=== PATIENT | female | born 1955 | race African-American/Black ===

== ENCOUNTER 2020-05-16 13:59 | Emergency (ER) | payer MEDICAID ==
[~2020-05-16] VITALS: Ht 170.2 cm; Wt 97.0 kg
[2020-05-16] MEDS ORDERED: IBUPROFEN 600MG TABLET PO ONE (15:00)
[2020-05-16 15:36] VITALS: BP 129/81
[2020-05-16] MEDS ORDERED: IBUP-2028 MT (15:42)
== END 2020-05-16 16:17 | disposition home or self-care (01) ==
LOC: ER 13:59
DX: M77.32 Calcaneal spur, left foot (principal)
CPT/HCPCS: 73630; 99283; Z7610

== ENCOUNTER 2020-05-23 08:13 | Emergency (ER) | payer MEDICAID ==
[~2020-05-23] VITALS: Ht 170.2 cm; Wt 97.0 kg
[~2020-05-23 08:13] MED LIST: IBUP-2028 MT
[2020-05-23] MEDS ORDERED: KETOROLAC 30MG/ML VIAL IM STA (08:23)
[2020-05-23] MEDS ORDERED: BACITRACIN ZINC OINT UDPKT TOP ONE (08:30)
[2020-05-23 09:15] VITALS: BP 136/69
[2020-05-23] MEDS ORDERED: IBUP-2030 PO (09:25)
== END 2020-05-23 10:28 | disposition home or self-care (01) ==
LOC: ER 08:13
DX: S91.311A Laceration without foreign body, right foot, initial encounter (principal); S80.811A Abrasion, right lower leg, initial encounter; M25.511 Pain in right shoulder; M25.551 Pain in right hip; R03.0 Elevated blood-pressure reading, without diagnosis of hypertension; W08.XXXA Fall from other furniture, initial encounter; Y93.E9 Activity, other interior property and clothing maintenance; Y92.018 Other place in single-family (private) house as the place of occurrence of the external cause
CPT/HCPCS: 73030; 73502; 73590; 96372; 99284; J1885